=== PATIENT | female | born 1935 | race Asian ===

== ENCOUNTER 2017-11-27 21:51 | Emergency (ER) | payer OTHER ==
[2017-11-27 22:53] LABS: ADD MAN DIFF? NO
[2017-11-27 22:55] LABS: WHITE BLOOD COUNT 5.8 10^3/ul (4.8-10.8)
[2017-11-27 22:55] LABS: BASOPHIL # 0.1 10^3/ul (0.0-0.1); BASOPHILS % 1.2 % (0.0-2.0); EOSINOPHILS # 0.2 10^3/ul (0.0-0.5); EOSINOPHILS % 2.9 % (0.0-7.0); HEMATOCRIT 32.9 % (37.0-47.0); HEMOGLOBIN 10.7 g/dl (12.0-16.0); LYMPHOCYTES # 1.6 10^3/ul (0.8-2.9); LYMPHOCYTES % 26.9 % (15.0-51.0); MEAN CORPUSCULAR HEMOGLOBIN 29.8 pg (29.0-33.0); MEAN CORPUSCULAR HGB CONC 32.5 g/dl (32.0-37.0); MEAN CORPUSCULAR VOLUME 91.6 fl (82.0-101.0); MEAN PLATELET VOLUME 10.2 fl (7.4-10.4); MONOCYTE # 0.8 10^3/ul (0.3-0.9); MONOCYTES % 13.2 % (0.0-11.0); NEUTROPHIL # 3.2 10^3/ul (1.6-7.5); NEUTROPHILS % 55.5 % (39.0-77.0); PLATELET COUNT 206 10^3/UL (140-415); RED BLOOD COUNT 3.59 10^6/ul (4.20-5.40); RED CELL DISTRIBUTION WIDTH 13.2 % (11.5-14.5)
[2017-11-27] MEDS: traMADol 50 MG TAB PO (23:02)
[2017-11-27 23:13] LABS: ANION GAP 14 (8-16); BLOOD UREA NITROGEN 23 mg/dl (7-20); CARBON DIOXIDE 22 mmol/L (21-31); CHLORIDE 110 mmol/L (97-110); CREATININE 1.24 mg/dl (0.44-1.00); GLUCOSE 152 mg/dl (70-220); POTASSIUM 4.8 mmol/L (3.5-5.1); SODIUM 141 mmol/L (135-144)
== END 2017-11-28 01:30 | disposition home or self-care (01) ==
LOC: E/R 11-28 01:30
DX: R60.9 Edema, unspecified (principal); E11.42 Type 2 diabetes mellitus with diabetic polyneuropathy; N28.9 Disorder of kidney and ureter, unspecified; I10 Essential (primary) hypertension; Z79.82 Long term (current) use of aspirin; Z79.84 Long term (current) use of oral hypoglycemic drugs
CPT/HCPCS: 36415; 73600-50; 80048; 85025; 93971; 99285-25

== ENCOUNTER 2017-12-05 16:38 | Emergency (ER) | payer OTHER ==
[2017-12-05 20:01] LABS: ADD MAN DIFF? NO
[2017-12-05 20:08] LABS: BASOPHIL # 0.1 10^3/ul (0.0-0.1); BASOPHILS % 1.3 % (0.0-2.0); EOSINOPHILS # 0.2 10^3/ul (0.0-0.5); EOSINOPHILS % 3.4 % (0.0-7.0); HEMATOCRIT 35.7 % (37.0-47.0); HEMOGLOBIN 11.5 g/dl (12.0-16.0); LYMPHOCYTES # 1.8 10^3/ul (0.8-2.9); LYMPHOCYTES % 25.6 % (15.0-51.0); MEAN CORPUSCULAR HGB CONC 32.2 g/dl (32.0-37.0); MEAN CORPUSCULAR VOLUME 93.2 fl (82.0-101.0); MEAN PLATELET VOLUME 10.3 fl (7.4-10.4); MONOCYTE # 0.7 10^3/ul (0.3-0.9); MONOCYTES % 10.8 % (0.0-11.0); NEUTROPHILS % 58.5 % (39.0-77.0); PLATELET COUNT 252 10^3/UL (140-415); RED BLOOD COUNT 3.83 10^6/ul (4.20-5.40); RED CELL DISTRIBUTION WIDTH 13.1 % (11.5-14.5)
[2017-12-05 20:08] LABS: WHITE BLOOD COUNT 6.8 10^3/ul (4.8-10.8)
[2017-12-05 20:16] LABS: ANION GAP 18 (8-16); BLOOD UREA NITROGEN 21 mg/dl (7-20); CALCIUM 9.9 mg/dl (8.4-10.2); CARBON DIOXIDE 26 mmol/L (21-31); CHLORIDE 104 mmol/L (97-110); CREATININE 1.04 mg/dl (0.44-1.00); GLUCOSE 115 mg/dl (70-220); POTASSIUM 4.6 mmol/L (3.5-5.1); SODIUM 143 mmol/L (135-144)
[2017-12-05] MEDS: CLINDAMYCIN 600 MG/D5W (PMX) 50 ML IVPB (20:35)
[2017-12-05] MEDS: KETOROLAC 15 MG INJ IV (21:53)
== END 2017-12-05 22:20 | disposition home or self-care (01) ==
LOC: E/R 16:38
DX: L03.116 Cellulitis of left lower limb (principal); I10 Essential (primary) hypertension; E11.9 Type 2 diabetes mellitus without complications; Z79.84 Long term (current) use of oral hypoglycemic drugs; Z79.82 Long term (current) use of aspirin
CPT/HCPCS: 80048; 85025; 96374; 96375; 99284-25

== ENCOUNTER 2017-12-08 16:27 | Emergency (ER) | payer OTHER ==
[2017-12-08 17:04] LABS: ADD MAN DIFF? NO
[2017-12-08 17:12] LABS: WHITE BLOOD COUNT 6.3 10^3/ul (4.8-10.8)
[2017-12-08 17:12] LABS: BASOPHIL # 0.1 10^3/ul (0.0-0.1); BASOPHILS % 1.3 % (0.0-2.0); EOSINOPHILS # 0.2 10^3/ul (0.0-0.5); EOSINOPHILS % 2.8 % (0.0-7.0); HEMATOCRIT 32.7 % (37.0-47.0); HEMOGLOBIN 10.4 g/dl (12.0-16.0); LYMPHOCYTES # 1.2 10^3/ul (0.8-2.9); LYMPHOCYTES % 18.8 % (15.0-51.0); MEAN CORPUSCULAR HEMOGLOBIN 29.7 pg (29.0-33.0); MEAN CORPUSCULAR HGB CONC 31.8 g/dl (32.0-37.0); MEAN CORPUSCULAR VOLUME 93.4 fl (82.0-101.0); MEAN PLATELET VOLUME 10.4 fl (7.4-10.4); MONOCYTE # 0.7 10^3/ul (0.3-0.9); MONOCYTES % 10.3 % (0.0-11.0); NEUTROPHIL # 4.2 10^3/ul (1.6-7.5); NEUTROPHILS % 66.2 % (39.0-77.0); PLATELET COUNT 232 10^3/UL (140-415)
[2017-12-08 17:29] LABS: ALANINE AMINOTRANSFERASE 25 IU/L (13-69); ALBUMIN 4.6 g/dl (3.3-4.9); ALBUMIN/GLOBULIN RATIO 1.21; ALKALINE PHOSPHATASE 57 IU/L (42-121); ANION GAP 19 (8-16); ASPARTATE AMINO TRANSFERASE 24 IU/L (15-46); BILIRUBIN,INDIRECT 0.4 mg/dl (0-1.1); BILIRUBIN,TOTAL 0.4 mg/dl (0.2-1.3); BLOOD UREA NITROGEN 20 mg/dl (7-20); CALCIUM 9.5 mg/dl (8.4-10.2); CARBON DIOXIDE 21 mmol/L (21-31); CHLORIDE 106 mmol/L (97-110); CREATININE 1.05 mg/dl (0.44-1.00); GLUCOSE 164 mg/dl (70-220); LIPASE 215 U/L (23-300); POTASSIUM 4.5 mmol/L (3.5-5.1); SODIUM 141 mmol/L (135-144); TOTAL PROTEIN 8.4 g/dl (6.1-8.1)
[2017-12-08 17:41] LABS: TROPONIN-I < 0.010 ng/ml (0.000-0.120)
[2017-12-08] MEDS: FAMOTIDINE 20 MG TAB PO (18:03)
[2017-12-08] MEDS: BELLADONNA/PHENOBARBITAL TAB PO (18:03)
[2017-12-08] MEDS: LIDOCAINE/MYLANTA 40 ML BTL PO (18:04)
[2017-12-08] MEDS: ONDANSETRON 4 MG INJ IV (18:04)
== END 2017-12-08 19:40 | disposition home or self-care (01) ==
LOC: E/R 16:27
DX: K52.1 Toxic gastroenteritis and colitis (principal); I10 Essential (primary) hypertension; E11.9 Type 2 diabetes mellitus without complications; I25.10 Atherosclerotic heart disease of native coronary artery without angina pectoris; T65.891A Toxic effect of other specified substances, accidental (unintentional), initial encounter; Z79.82 Long term (current) use of aspirin; Z79.84 Long term (current) use of oral hypoglycemic drugs
CPT/HCPCS: 36415; 71045; 74176; 80053; 83690; 84484; 85025; 93005; 99285-25